=== PATIENT | female | born 1965 | race Caucasian/White ===

== ENCOUNTER 2019-06-11 07:17 | Inpatient (IN) | payer BC ==
[~2019-06-11 07:17] MED LIST: ACETAMINOPHEN 325 MG TABLET PO PRN; CEFAZOLIN SODIUM 2 GM in DEXTROSE 5%-WATER 100 ML IV PRN; CELECOXIB 200 MG CAPSULE PO PRN; GABAPENTIN 100 MG CAPSULE PO PRN; LACTATED RINGERS 1000 ML IV PRN; LIDOCAINE 0.5% INJ-PF (5 MG/ML) 50 ML SDV SUBCUT PRN; ONDANSETRON HCL INJ/PF 4 MG/2 ML SDV IV PRN; OXYCODONE HCL SR 10 MG TABLET PO PRN; SCOPOLAMINE HYDROBROMIDE 1.5 MG PATCH.TD72 TD PRN; TRAMADOL HCL 50 MG TABLET PO PRN; TRANEXAMIC ACID INJ/PF 1,000 MG/10 ML SDV IV PRN; VANCOMYCIN HCL 1,000 MG in DEXTROSE 5%-WATER 250 ML IV PRN
[2019-06-11] MEDS ORDERED: MIDAZOLAM 2 MG/2 ML INJ ONE (09:16)
[2019-06-11] MEDS ORDERED: FENTANYL CITRATE INJ/PF 100 MCG/2 ML AMPUL ONE (09:16)
[2019-06-11] MEDS ORDERED: PROPOFOL INJ 200 MG/20 ML VIAL IV ONE ×4 (09:17→17:16)
[2019-06-11] MEDS ORDERED: ONDANSETRON HCL INJ/PF 4 MG/2 ML SDV ONE ×2 (09:17→12:51)
[2019-06-11] MEDS ORDERED: DEXAMETHASONE SOD PHOSPHATE INJ 4 MG/1 ML VIAL ONE (09:17)
[2019-06-11] MEDS ORDERED: CELECOXIB 200 MG CAPSULE ONE (12:50)
[2019-06-11] MEDS ORDERED: ACETAMINOPHEN 325 MG TABLET ONE (12:50)
[2019-06-11] MEDS ORDERED: GABAPENTIN 100 MG CAPSULE ONE (12:51)
[2019-06-11] MEDS ORDERED: TRAMADOL HCL 50 MG TABLET ONE (12:51)
[2019-06-11] MEDS ORDERED: OXYCODONE HCL SR 10 MG TABLET PO ONE (12:51)
[2019-06-11] MEDS ORDERED: EPINEPHRINE INJ/PF 1 MG/1 ML AMPULE ONE (13:48)
[2019-06-11] MEDS ORDERED: ONDANSETRON HCL INJ/PF 4 MG/2 ML SDV IV PRN (13:50)
[2019-06-11] MEDS ORDERED: FENTANYL CITRATE INJ/PF 100 MCG/2 ML AMPUL IV PRN ×3 (13:50)
[2019-06-11] MEDS ORDERED: DIPHENHYDRAMINE HCL 50 MG/ML VIAL IV PRN (13:50)
[2019-06-11] MEDS ORDERED: OXYCODONE-ACETAMINOPHEN 5-325 MG TABLET PO PRN ×2 (13:50)
[2019-06-11] MEDS ORDERED: MEPERIDINE HCL/PF INJ 25 MG/1 ML DISP.SYRIN IV PRN (13:50)
[2019-06-11] MEDS ORDERED: MORPHINE SULFATE 10 MG/ML INJ IV PRN ×2 (13:50→20:21)
[2019-06-11] MEDS ORDERED: TRANEXAMIC ACID INJ/PF 1,000 MG/10 ML SDV ONE ×2 (13:52→16:59)
[2019-06-11] MEDS ORDERED: KETAMINE HCL INJ 500 MG/10 ML VIAL ONE (14:23)
[2019-06-11] MEDS ORDERED: ROPIVACAINE HCL 0.5% INJ/PF (5 MG/1 ML) 30 ML SDV ONE (15:19)
[2019-06-11] MEDS ORDERED: LIDOCAINE 2%/EPINEPHRINE INJ 20 ML VIAL ONE (15:19)
[2019-06-11] MEDS: BACITRACIN INJ 50,000 UNIT VIAL ONE ×2 (15:38→16:40)
[2019-06-11] MEDS: GENTAMICIN SULFATE INJ 80 MG/2 ML VIAL ONE ×2 (15:39→16:40)
[2019-06-11] MEDS: VANCOMYCIN HCL INJ 1000 MG VIAL ONE ×3 (15:41→17:20)
[2019-06-11] MEDS: BUPIVACAINE HCL 0.25 % INJ/PF (2.5 MG/1 ML) 30 ML VIAL ONE ×2 (15:42→17:25)
[2019-06-11] MEDS: KETOROLAC TROMETHAMINE 60 MG/2 ML SDV ONE ×2 (15:44→17:25)
[2019-06-11] MEDS: LIDOCAINE 1% INJ-PF (10 MG/ML) 30 ML SDV ONE ×2 (15:46→17:25)
[2019-06-11] MEDS ORDERED: HYDROMORPHONE HCL INJ/PF 2 MG/ML AMPULE ONE (17:16)
--- NOTE | 2019-06-11 18:21 | Operative Report ---
Operative Report DATE OF SURGERY: 06/11/19 PREOPERATIVE DIAGNOSIS: Right knee primary osteoarthritis POSTOPERATIVE DIAGNOSIS: Right knee primary osteoarthritis OPERATION: Right total knee arthroplasty SURGEON: KALEN AHUJA JR ANESTHESIA: Spinal COMPLICATIONS: None PROCEDURE: Components: Right total knee: 5 femur, 4 x 9 tibia, and a 29 patella BRIEF HISTORY: 54year old male/female with severe degenerative arthritis of right knee, which has failed conservative treatment including physical therapy injections and [id number] pain medications as well as activity modification. And has elected for a total knee arthroplasty. Risks include but are not limited to bleeding, infection, anesthesia, , injury to nerve or vessel, pain, scar, leg length inequality, dislocation, future surgery, and blood clots. Patient read through the pre-op counseling form and signed and solicited for surgery on their right knee. OPERATIVE PROCEDURE: Patient was brought to the operating room on and underwent spinal anesthesia. After proper anesthesia was obtained, patient was positioned, padded, prepped, and draped in the usual sterile fashion on the operating room table. 2 grams of Ancef and 1 g of vancomycin were given. Appropriate time out was performed. Anterior incision and medial-parapatella approach was performed. Severe degenerative arthritis was noted. Osteophytes were removed from the femur and tibia, and the remainder of the ACL and PCL were removed. The proximal tibia was initially cut degrees to the axis of the tibia and measured to be a 5 tibia. The distal femur was drilled, the canal was irrigated and the distal femoral guide was placed. The distal femur was cut to 5 degrees of varus. Based block was utilized to evaluate the extension gap. I was not able to place the 9 mm spacer block in. I subsequently had to perform sequential cuts of both the distal femur and the proximal tibia in order to resect enough bone to account for her preoperative 35 degree flexion contracture. The tensor was placed in flexion and the femur was sized to a 5. The AP block was placed and anterior- posterior chamfer cuts were made. Posterior osteophytes were removed and the flexion gap measured to be 9 mm. Due to the poor bone quality of the distal femur I decided to utilize a stem, so we placed the stem reaming guide and the stemmed femur cut block on the distal femur and prepared the rest of the femur. A trial was placed on the femur and then we subsequently turned our attention back to the proximal tibia. Again, due to a conversation that we had preoperatively with the family and the attempt to avoid increased shear stress that the patient would likely have if she were to have recurrent contracture, given her traumatic brain injury, we proceeded with the plan of stemming the tibia as well with metaphyseal and proximal cement fixation. A floating tibial baseplate was placed in the knee was taken through range of motion, after which we determined the tibial rotation, pinned the tibial baseplate and then finished the tibial preparation. The tensor was placed in extension and the extension gap was balanced with releases until the goniometer on the tensor measured to 0. A 9 mm block was used to confirm symmetric flexion and extension gaps. The rotating tibial plastic was placed and rotation marked. The stemmed tibial cutout was made for the stemmed tibial trial and excellent stability was had in flexion and extension with a 9 mm poly-. The patella AP aspect was measured to 24 mm and patella was cut parallel to the anterior patella surface. A 29 mm button was placed medially and superiorly as possible and the patella-button construct measured T6 mm. The patella tracked well. No need for a lateral release. Cement fixation places made on the femur and tibia, and pulsatile irrigation of the hailey and soft tissue surfaces. The hailey surfaces were cleaned and dried, and cementation of the femur, tibia, and patella. Periarticular injection with Marcaine and Toradol was performed. The knee was irrigated with antibiotic solution. A gram of Vancomycin was placed intra-articularly. The extensor mechanism was closed with number 2 Stratofix along with 0 Vicryl retention stitches. The subcutaneous tissue closed with 2-0 PDS and the skin closed with 3-0 running barbed Monocryl. A silver dressing was applied. All needle sponge and instrument counts were correct. Patient was awakened from sedation anesthesia and taken to recovery room in good condition. Kalen Ahuja DO
[2019-06-11] MEDS ORDERED: OXYCODONE HCL IR 5 MG TABLET PO PRN ×2 (20:20→20:21)
[2019-06-11] MEDS ORDERED: TRAMADOL HCL 50 MG TABLET PO PRN (20:22)
[2019-06-11] MEDS ORDERED: PANTOPRAZOLE SODIUM 20 MG TABLET.DR PO PRN (20:23)
[2019-06-11] MEDS ORDERED: ZOLPIDEM TARTRATE 5 MG TABLET PO PRN (20:24)
[2019-06-11] MEDS ORDERED: DIPHENHYDRAMINE HCL 25 MG CAPSULE PO PRN (20:24)
[2019-06-11] MEDS ORDERED: ONDANSETRON 4 MG TAB.RAPDIS PO PRN (20:25)
[2019-06-11] MEDS ORDERED: NORMAL SALINE 1000 ML 1,000 ML IV PRN (20:25)
[2019-06-11] MEDS ORDERED: DOCUSATE SODIUM 100 MG CAPSULE PO PRN (20:25)
[2019-06-11] MEDS: CEFAZOLIN SODIUM 2 GM in DEXTROSE 5%-WATER 100 ML IV SCH (21:55)
[2019-06-11] MEDS: ACETAMINOPHEN 325 MG TABLET PO SCH (21:56)
[2019-06-11] MEDS ORDERED: GABAPENTIN 300 MG CAPSULE PO SCH (22:00)
[2019-06-11] MEDS: KETOROLAC TROMETHAMINE INJ/PF 30 MG/1 ML SDV IV SCH (22:00)
[2019-06-11] MEDS ORDERED: GABAPENTIN 100 MG CAPSULE PO SCH (22:00)
--- NOTE | 2019-06-11 23:16 | RADIOLOGY REPORT (SQ) ---
EXAM DESCRIPTION: XR KNEE 1-2 VIEWS COMPLETED DATE/TME: 06/11/2019 00:00 CLINICAL HISTORY: 54 years, Female, post op COMPARISON: None. NUMBER OF VIEWS: 2 TECHNIQUE: 2 view right knee LIMITATIONS: None. FINDINGS: Osteopenia. Right knee arthroplasty changes. Soft tissue gas and swelling is likely postoperative in nature IMPRESSION: Right knee arthroplasty change. copyright 2010 [employer]- All Rights Reserved
[2019-06-12] MEDS: KETOROLAC TROMETHAMINE INJ/PF 30 MG/1 ML SDV IV SCH (05:33)
[2019-06-12] MEDS: ACETAMINOPHEN 325 MG TABLET PO SCH (05:33)
[2019-06-12] MEDS: CEFAZOLIN SODIUM 2 GM in DEXTROSE 5%-WATER 100 ML IV SCH (05:34)
--- NOTE | 2019-06-12 07:21 | PDOC PROGRESS REPORT ---
Subjective Progress Note for:: 06/12/19 Subjective:: Patient is doing very well this morning. She has minimal pain. She does however have her knee sitting in a position in bed but is not ideal given her prior flexion contracture. I explained this to her at length. Her is not currently with her but will be with her soon and I will discuss this with him as well. She has no overnight symptoms and no acute events. Overall she is very pleased. Reason For Visit: M17.11 UNILATERAL PRIMARY OSTEOAR Physical Exam Vital Signs: Temp Pulse Resp BP Pulse Ox 98.4 F 93 16 113/58 L 100 06/12/19 00:20 06/12/19 00:20 06/12/19 00:20 06/12/19 00:20 06/12/19 00:20 Intake & Output 06/11/19 06/12/19 06/13/19 06:59 06:59 06:59 Intake Total 2700 Output Total 10 Balance 2690 Weight 102.2 kg Physical Exam: General appearance: PRESENT: no acute distress, cooperative, well-nourished Head exam: PRESENT: atraumatic, normocephalic Eye exam: PRESENT: EOMI Ear exam: PRESENT: normal external ear exam Mouth exam: PRESENT: neck supple Neck exam: ABSENT: tracheal deviation Respiratory exam: PRESENT: symmetrical, unlabored. ABSENT: accessory muscle use, wheezes Pulses: PRESENT: normal radial pulses, normal dorsalis pedis pul Vascular exam: PRESENT: normal capillary refill GI/Abdominal exam: ABSENT: distended, firm Extremities exam: PRESENT: full ROM of bilateral shoulders, elbows wrists, knees, hips and ankles without pain Musculoskeletal exam: PRESENT: full ROM, normal inspection Neurological exam: PRESENT: alert, awake, oriented to person, oriented to place, oriented to time Psychiatric exam: PRESENT: appropriate affect. ABSENT: agitated Focused psych exam: ABSENT: catatonic Skin exam: PRESENT: intact. ABSENT: dry All as above aside from that noted in the HPI and the following: The right lower extremity is well dressed without any signs of bleeding, I have positioned her on a bump to allow for full knee extension. She has 2+ pulses and is grossly sensorimotor intact, with motion of the EHL TA and gastroc. Compartments are soft. Results Impressions: Knee X-Ray 06/11/19 00:00 IMPRESSION: Right knee arthroplasty change. copyright 2010 [employer]- All Rights Reserved Assessment & Plan - Diagnosis (1) Unilateral primary osteoarthritis, right knee Is this a current diagnosis for this admission?: Yes Plan: I discussed with her and her at length the importance of maintaining full knee extension. I reviewed that again with her this morning. She has a knee MD device with her that she should start using immediately. -Physical therapy today should help her to use her knee MD to obtain full extension. I explained that this will be painful but necessary even in this immediately postop period In order for her not to return to her flexion contracture. - 2 doses of Ancef postoperatively q 8 hours to complete 24 hours perioperatively - Weightbearing as tolerated, no precautions, encourage out of bed ZEESHAN for ADL training - PT/OT - aspirin 325 daily for DVT prophylaxis for 6 weeks - multimodal pain management to avoid excessive narcotics, including gabapentin, tramadol, Toradol, acetaminophen. - Dressing should not be removed for 7 to 10 days until seen in the office - May shower with the dressing intact, if it starts to come off she should not get the incision wet. - I would like to follow the patient my office within the next 7 to [address] [place] [address]. in [place] office #: [phone] - Time Time Spent with patient: 15-24 minutes
[2019-06-12] MEDS ORDERED: IRON CARBONYL PO SCH (08:00)
[2019-06-12] MEDS ORDERED: ASCORBIC ACID PO SCH (08:00)
[2019-06-12] MEDS ORDERED: ASPIRIN 325 MG TABLET, ENT COATED PO SCH (10:00)
[2019-06-12] MEDS ORDERED: POLYETHYLENE GLYCOL 3350 POWDER 17 GM/1 PACKET PO SCH (10:00)
[2019-06-12] MEDS ORDERED: IRON POLYSACCHARIDES COMPLEX 150 MG CAPSULE PO SCH (10:00)
[2019-06-12] MEDS ORDERED: MULTIVITAMIN TABLET PO SCH (10:00)
[2019-06-12] MEDS ORDERED: [UNRECOGNIZED DRUG - OTHER] PO SCH (10:00)
[2019-06-12] MEDS ORDERED: MULTIVIT WITH CALCIUM IRON MIN PO SCH (10:00)
[2019-06-12] MEDS ORDERED: FLUOXETINE HCL 20 MG CAPSULE PO SCH (10:00)
[2019-06-12 13:07] VITALS: BP 133/85
--- NOTE | 2019-06-16 16:33 | PDOC DISCHARGE SUMMARY ---
Impression - Admit/DC Date/PCP Admission Date/Primary Care Provider: 06/11/19 11:47 Discharge Date: 06/12/19 - Discharge Diagnosis (1) Unilateral primary osteoarthritis, right knee Is this a current diagnosis for this admission?: Yes - Assessment Summary: Ms. Pacheco was brought to the hospital on 06/11/2019 for an elective right total knee arthroplasty. We discussed extensively in the office her debility and difficulty ambulating and the fact that she had become dependent upon a walker if at all due to her right knee osteoarthritis that was severe as well as a 30 degree flexion contracture in her right knee and difficulty performing activities of daily living including basic ambulation as well as getting in and out of cars and that her quality of life was significantly decreased because of these problems. After considerable work-up and preoperative physical therapy as well as counseling in regards to her high risk of having a failed right total knee arthroplasty patient elected to proceed. Consent was obtained both in the office as well as at the hospital. After surgery which was uneventful, the patient was then admitted to the hospital for postoperative medical management and pain control. During this time she was evaluated by physical therapy who had her walking on postoperative day #1 and was working with her for range of motion purposes as well as full knee extension which is assisted by a special device called the "knee MD". On postoperative day #1 she was doing very well, she was deemed medically and functionally stable for discharge home. She has a good home support structure to allow her focused rehabilitation from her home over the next few weeks. We will closely follow her both from the office as well as regularly checking in on her via telephone in regards to her recovery. All prescriptions and postoperative instructions were provided to her in the clinic prior to admission. Is no acute events or complications over the course of her stay. - Additional Information Resuscitation Status: Full Code Discharge Diet: As Tolerated, Regular Discharge Activity: Activity As Tolerated, Balance Activity w/Rest Referrals: SUNSHINE AHUJA JR, DO [ACTIVE PROVISIONAL STAFF] - 06/22/19 3:40 pm Home Medications: Acetaminophen [Tylenol] 650 mg PO Q4HP PRN 06/01/19 Fluoxetine HCl [Prozac 20 mg Capsule] 20 mg PO DAILY 06/01/19 Gabapentin [Neurontin 300 mg Capsule] 300 mg PO QHS 06/01/19 Multivit with Calcium,Iron,Min [Multiple Vitamins For Women] 1 tab PO DAILY 06/01/19 Docusate Sodium [Colace 100 mg Capsule] 100 mg PO BID 06/04/19 Iron,Carbonyl/Ascorbic Acid [Iron 100-Vitamin C Tablet] 1 tab PO DAILY 06/04/19 Polyethylene Glycol 3350 [Miralax Powder 17 gm/Packet] 17 gm PO DAILYP PRN 06/04/19 Fluoxetine HCl [Prozac 20 mg Capsule] 20 mg PO DAILY capsule 06/12/19 Oxycodone HCl [Oxy-Ir 5 mg Tablet] 10 mg PO Q4HP PRN tablet 06/12/19 Tramadol HCl [Ultram 50 mg Tablet] 50 mg PO Q4HP PRN tablet 06/12/19 History of Present Illiness History of Present Illness: NOVEMBER SHAYAN Philip is a 54 year old female Physical Exam Vital Signs: Temp Pulse Resp BP Pulse Ox 98.4 F 93 16 133/85 H 100 06/12/19 13:04 06/12/19 13:04 06/12/19 13:04 06/12/19 13:04 06/12/19 13:04 Results Impressions: Knee X-Ray 06/11/19 00:00 IMPRESSION: Right knee arthroplasty change. copyright 2010 [employer]- All Rights Reserved Stroke Is this a Stroke Patient?: No Acute Heart Failure - Is this a Heart Failure Patient?: No
== END 2019-06-12 13:32 | disposition home or self-care (01) | DRG 470 ==
LOC: INOR 11:47 → 4S 19:24
PROVIDERS: ADMIT Orthopaedic Surgery; ATTEND Orthopaedic Surgery
PROC: 0SRC0J9 Replacement of Right Knee Joint with Synthetic Substitute, Cemented, Open Approach (ICD-10-PCS; principal; 2019-06-11 14:00)
DX: M17.11 Unilateral primary osteoarthritis, right knee (principal); M62.50 Muscle wasting and atrophy, not elsewhere classified, unspecified site; M24.561 Contracture, right knee; F17.210 Nicotine dependence, cigarettes, uncomplicated; Z87.820 Personal history of traumatic brain injury
CPT/HCPCS: 01402; C1713; C1776; J0171; J0690; J1100; J1170; J1580; J1885; J2250; J2405; J2704; J2795; J3010; J3370; J3490; J7060